=== PATIENT | male | born 1985 | race American Indian/Alaskan Native ===

== ENCOUNTER 2021-05-05 15:21 | Emergency (ER) | payer BC, OTHER ==
[~2021-05-05] VITALS: Ht 195.6 cm; Wt 190.1 kg
== END 2021-05-05 18:56 | disposition home or self-care (01) ==
LOC: ED 15:21
DX: B34.9 Viral infection, unspecified (principal); R03.0 Elevated blood-pressure reading, without diagnosis of hypertension; Z20.822 Contact with and (suspected) exposure to COVID-19
CPT/HCPCS: 99284; C9803; U0003